=== PATIENT | female | born 1960 | race Caucasian/White ===

== ENCOUNTER 2017-01-07 20:48 | Emergency (ER) | payer MEDICAID, OTHER ==
[~2017-01-07] VITALS: Ht 167.6 cm; Wt 59.0 kg
[2017-01-07 20:50] VITALS: BP 122/70
[2017-01-07] MEDS ORDERED: CEPHALEXIN MONOHYDRATE 500 MG CAPSULE PO ONE ×2 (20:57→21:00)
[2017-01-07] MEDS ORDERED: TDAP [DIPH/PERTUSSIS/TET] 0.5 ML VIAL IM ONE ×2 (20:58→21:00)
[2017-01-07] MEDS: LIDOCAINE 1%-EPI 1:100,000 20 ML VIAL TP ONE ×2 (21:02→21:32)
--- NOTE | 2017-01-07 21:02 | NUR ---
VERBAL ORDER FROM DELORIS SRINIVASAN NP LIDOCAINE 2% WITH EPI 1:100,000 30ML VIAL ALSO MED ADMINISTERED BY DELORIS REEVES.
--- NOTE | 2017-01-07 21:02 | NUR ---
Neto mckeon in ED - 01/08/17 at 0653 by ANAM VERBAL ORDER FROM DELORIS SRINIVASAN NP LIDOCAINE 2% WITH EPI 1:100,000 ALSO MED ADMINISTERED BY DELORIS REEVES.
== END 2017-01-07 21:32 | disposition home or self-care (01) ==
LOC: ER 20:51
DX: S61.511A Laceration without foreign body of right wrist, initial encounter (principal); S56.221A Laceration of other flexor muscle, fascia and tendon at forearm level, right arm, initial encounter; W25.XXXA Contact with sharp glass, initial encounter; Y93.89 Activity, other specified; Y92.89 Other specified places as the place of occurrence of the external cause; Y99.8 Other external cause status
CPT/HCPCS: 73110; 90715; A4606; Z7610